=== PATIENT | female | born 1995 | race Caucasian/White ===

== ENCOUNTER 2021-01-04 08:49 | Emergency (ER) | payer SELFPAY ==
[~2021-01-04] VITALS: Ht 172.7 cm; Wt 79.5 kg
[2021-01-04 08:50] VITALS: BP 137/77
[2021-01-04 09:37] LABS: SPERM,URINE PRESENT /HPF
[2021-01-04 09:38] LABS: BACTERIA,URINE 0 /HPF (0-FEW); BILIRUBIN,URINE NEG (NEG); CLARITY,URINE HAZY; COLOR,URINE YELLOW; GLUCOSE,URINE NEG (NEG); NITRITE,URINE NEG (NEG); RBC,URINE RARE /HPF (0-2); SQUAMOUS EPITHELIAL CELL,UR MANY /LPF; UROBILINOGEN,URINE 0.2 mg/dL (0.2 mg/dL); WBC,URINE RARE /HPF (0-4)
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
[2021-01-04] MEDS: ACETAMINOPHEN 500 MG TABLET PO ONE (09:53)
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
== END 2021-01-04 10:41 | disposition home or self-care (01) ==
LOC: ER 08:49
DX: O26.891 Other specified pregnancy related conditions, first trimester (principal); S46.911A Strain of unspecified muscle, fascia and tendon at shoulder and upper arm level, right arm, initial encounter; S20.211A Contusion of right front wall of thorax, initial encounter; Z3A.11 11 weeks gestation of pregnancy; V43.62XA Car passenger injured in collision with other type car in traffic accident, initial encounter; Y93.89 Activity, other specified; Y92.488 Other paved roadways as the place of occurrence of the external cause; Y99.8 Other external cause status
CPT/HCPCS: 71101; 73030; 76801; 81001; 81025; 99285-25